=== PATIENT | female | born 1995 | race Two or more races ===

== ENCOUNTER 2018-03-04 03:01 | Emergency (ER) | payer MEDICAID ==
[~2018-03-04] VITALS: Ht 162.6 cm; Wt 61.2 kg
[2018-03-04 03:20] VITALS: BP 131/70
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
[2018-03-04 04:10] VITALS: BP 131/70
--- NOTE | 2018-03-04 11:25 | Diagnostic Imaging Report ---
Indication: Pain Technique: 3 views right hand Comparison: none Findings: No acute fractures. No dislocations. Joint spaces are preserved. Impression: Negative
== END 2018-03-04 04:10 | disposition home or self-care (01) ==
LOC: EMR 03:48
DX: S60.221A Contusion of right hand, initial encounter (principal); V43.52XA Car driver injured in collision with other type car in traffic accident, initial encounter; Y92.410 Unspecified street and highway as the place of occurrence of the external cause
CPT/HCPCS: 99283